=== PATIENT | male | born 1970 | race Caucasian/White ===

== ENCOUNTER 2025-09-13 13:43 | Outpatient (CLI) | payer BC, SELFPAY ==
[2025-09-13 13:59] VITALS: BP 139/81; PULSE 69; RESP 18; TEMP 36.4; O2SAT 96
--- NOTE | 2025-09-13 14:28 | PDOC.PAIN ---
Date of service: 09/13/25 Time of Service: 14:56 Pain Managment Procedure Note Procedure Note Procedure Note: Lumbar Transforaminal Epidural Steroid Injection ? Location: RIGHT L5 ? Pre-procedure Diagnosis: M54.17-Radiculopathy, lumbosacral region M54.16 Radiculopathy, lumbar region ? Post-procedure Diagnosis:? The same as above ? Sedation:? none ? Estimated blood loss:? less than 2 cc ? Surgeon:? Braulio Boyd MD COMMENT: MRI lumbar spine 07/29/2024 lumbar spine-multiple levels of degenerative changes with some mild stenosis at L2-3 and L3-4. There is some foraminal narrowing bilaterally at L4 and L5 bilaterally the most significant is at the right L5. ? Procedure Detail:?? The procedure and potential risks were explained to the patient and informed written consent was obtained. The patient was escorted to the procedure room and placed in the prone position. Pillows were utilized for proper positioning and comfort. Time out was performed in the procedure room with nursing staff confirming the patient's identity, procedure to be performed, allergies, and any blood thinning or anti-platelet medications. The patient's lower back was prepped with ChloraPrep and draped in a sterile fashion. Sterile gloves were used, a face mask was worn, and new single dose vials of all medications were used with the top being swabbed with alcohol and given time to dry prior to withdrawal of medication. A right-sided oblique fluoroscopic view was obtained, with visualization of L5-S1. Lidocaine 1% was used to anesthetize the skin. The tip of a 22-gauge, Quincke needle was advanced toward the 6 o'clock position of the superior pedicle at the target level.? It was advanced just under the pedicle to the neural foramen L5-S1. Correct needle placement was confirmed through review of the fluoroscopy. Next, following negative aspiration, 1cc's of Omnipaque 240 contrast was injected under live fluoroscopy which showed good flow throughout the epidural space and no evidence of vascular flow or flow into adjacent compartments. Next, following negative aspiration, 40mg Depo-Medrol and 0.5ml of 0.5% bupivacaine was injected. The needle was gently removed.? ? The patient tolerated the procedure well and was discharged home with instructions.? Permanent images saved and recorded. Plan:? Follow up prn PAIN: PRE PROCEDURE 04/02 POST PROCEDURE 12/03 COMMENT: Patient has also been complaining of some left radicular symptoms on occasion. Will see how he does with the right side and then consider left if he is still symptomatic. Difficult access to right L5 transforaminal approach so would do interlaminar with catheter next if needed. Coding Conscious Sedation used for procedure: No CPT Codes: Transforaminal Lumbar/Sacral (includes fluoro) - 17621 ([id number] ~G) Additional Codes: Date of Service () Diagnoses: M54.17-Radiculopathy, lumbosacral region M54.16 Radiculopathy, lumbar region
[2025-09-13 14:56] VITALS: PULSE 70; O2SAT 98
[2025-09-13] MEDS: Nerve Block Tray 1 EACH MC (14:57)
[2025-09-13] MEDS: Bupivacaine 0.5% Pres-Free 10 ML VIAL IJ (14:57)
[2025-09-13] MEDS: Omnipaque 240 MG/ML 50 ML BTL IJ (14:57)
[2025-09-13] MEDS: methylPREDNISolone ACETATE 40 MG/ML VIAL IJ (14:58)
--- NOTE | 2025-09-13 14:58 | DI.RAD_ITS ---
Exam(s) XR PAIN CLINIC LUMBAR SP 2V EXAM: XR PAIN CLINIC LUMBAR SP 2V CLINICAL HISTORY: Dx: Lumbar Radiculopathy. TECHNIQUE: Fluoroscopy was provided for the referring physician for guidance with performing pain clinic injection procedure. COMPARISON: No exams were available for comparison FINDINGS: Please see procedure note for details. Fluoro time: 28 seconds RADIATION DOSE DELIVERED: jaqueline Tomas=17.1 mGy
== END 2025-09-13 13:44 | disposition home or self-care (01) ==
LOC: PC 13:43
PROVIDERS: PCP Nurse Practitioner Family; Visit Provider Anesthesiology Pain Medicine
DX: M54.17 Radiculopathy, lumbosacral region (principal); M54.16 Radiculopathy, lumbar region
CPT/HCPCS: 64483; 72100; J0665; J1010; Q9967